=== PATIENT | female | born 1970 | race Caucasian/White ===

== ENCOUNTER 2017-10-05 15:42 | Emergency (ER) | payer SELFPAY ==
[~2017-10-05] VITALS: Ht 157.5 cm; Wt 85.8 kg
[2017-10-05 17:12] LABS: microscopic required? YES; urine erythrocyte 1+ (NEGATIVE)
[2017-10-05 17:37] LABS: BASOPHIL % 0.4 % (0-2); PLATELET COUNT 279 x10^3mcL (130-400); RED CELL DISTRIBUTION WIDTH 12.4 % (11.5-14.5)
[2017-10-05 17:43] LABS: CALCIUM 9.5 mg/dL (8.5-10.1); CARBON DIOXIDE 28.7 mmol/L (21-32); CHLORIDE SERUM 103 mmol/L (98-107); CREATININE SERUM 0.8 mg/dL (0.6-1.0); GFR1 > 60 mL/min; GLUCOSE SERUM 93 mg/dL (74-106); POTASSIUM SERUM 4.4 mmol/L (3.5-5.1); SODIUM SERUM 137 mmol/L (136-145)
[2017-10-05 17:45] LABS: ALBUMIN 3.8 g/dL (3.4-5.0); ALKALINE PHOSPHATASE 54 U/L (46-116); ALT/SGPT 78 U/L (14-59); AMYLASE 64 U/L (25-115); AST/SGOT 26 U/L (15-37); BILIRUBIN TOTAL 0.4 mg/dL (0.20-1.00); LIPASE 153 IU/L (73-393); TOTAL PROTEIN, SERUM 8.2 g/dL (6.4-8.2)
[2017-10-05 20:25] VITALS: BP 147/101
== END 2017-10-05 20:25 | disposition home or self-care (01) ==
LOC: ED 15:42
PROVIDERS: Emergency Medicine
DX: R10.32 Left lower quadrant pain (principal); R19.09 Other intra-abdominal and pelvic swelling, mass and lump; R11.2 Nausea with vomiting, unspecified; R68.83 Chills (without fever)
CPT/HCPCS: 83880; J1885; J7030